=== PATIENT | female | born 1965 | race Caucasian/White ===

== ENCOUNTER 2022-09-20 10:37 | Emergency (ER) | payer OTHER ==
[2022-09-20 11:07] VITALS: BP 140/79; PULSE 64; RESP 16; TEMP 98.6; BMI 25.4
[2022-09-20] MEDS ORDERED: IBUPROFEN 400 MG TABLET (FP) PO ONE ×2 (11:49→12:00)
== END 2022-09-20 13:10 | disposition home or self-care (01) ==
LOC: FER 10:37
DX: M54.2 Cervicalgia (principal); M25.511 Pain in right shoulder; S16.1XXA Strain of muscle, fascia and tendon at neck level, initial encounter; R20.2 Paresthesia of skin; V43.52XA Car driver injured in collision with other type car in traffic accident, initial encounter; Y92.410 Unspecified street and highway as the place of occurrence of the external cause
CPT/HCPCS: 72050-TC-FY; 99283-25